=== PATIENT | female | born 1985 | race African-American/Black ===

== ENCOUNTER 2023-05-31 15:14 | Inpatient (IN) | payer MEDICAID, SELFPAY ==
[2023-05-31 15:36] VITALS: BMI 25.0
[2023-05-31] MEDS ORDERED: Methylergonovine 0.2 MG/ML VIAL IM PRN ×2 (16:25→17:12)
[2023-05-31] MEDS ORDERED: Misoprostol 200 MCG TAB PR PRN (16:25)
[2023-05-31] MEDS ORDERED: Docusate 100 MG CAP PO PRN (16:25)
[2023-05-31] MEDS ORDERED: Tranexamic Acid 1,000 MG/10 ML VIAL IVP PRN (16:25)
[2023-05-31] MEDS ORDERED: Ondansetron PF 4 MG/2 ML Vial IVP PRN (16:25)
[2023-05-31] MEDS ORDERED: Carboprost 250 MCG/ML AMP IM PRN (16:25)
[2023-05-31] MEDS ORDERED: Diphenoxylate HCl/Atropine Tablet PO PRN (16:25)
[2023-05-31] MEDS ORDERED: Lidocaine 1% (PF) 30 ML VIAL SC PRN (16:25)
[2023-05-31] MEDS ORDERED: Promethazine HCl 25 MG/ML VIAL IM PRN (16:25)
[2023-05-31] MEDS ORDERED: Oxytocin 30 units/NS 500 ML 500 ML IV SCH ×2 (16:30→17:15)
[2023-05-31] MEDS ORDERED: Penicillin G Potassium 5 MILL.UNITS in Sodium Chloride 0.9% 100 ML IVPB SCH (16:30)
[2023-05-31 16:49] LABS: Hematocrit 36.8 % (34.9-44.5); Hemoglobin 11.8 g/dL (12.0-15.5); Mean Corpuscular HGB CONC 32.1 g/dL (32.0-36.0); Mean Corpuscular Hemoglobin 28.2 pg (27.0-33.0); Mean Corpuscular Volume 87.8 fl (81.6-98.3); Mean Platelet Volume 11.1 fl (7.4-10.4); Platelet Count 308 10x3/uL (150-450); RBC Distribution Width 11.7 % (11.5-14.5); Red Blood Cell (RBC) Count 4.19 10x6/uL (3.90-5.03); White Blood Cell (WBC) Count 9.3 10x3/uL (3.5-10.5)
[2023-05-31] MEDS ORDERED: hydrALAZINE 20 MG/ML VIAL SLOW IVP PRN ×2 (17:12→18:41)
[2023-05-31] MEDS ORDERED: Milk Of Magnesia 30 ML UDCUP PO PRN (17:12)
[2023-05-31] MEDS ORDERED: Benzocaine-Menthol 82.5 ML CAN TOP PRN (17:12)
[2023-05-31] MEDS ORDERED: Lanolin Ointment 7 GM TUBE TOP PRN (17:12)
[2023-05-31] MEDS ORDERED: diphenhydrAMINE 25 MG CAP PO PRN (17:12)
[2023-05-31] MEDS ORDERED: Bisacodyl 10 MG SUPP PR PRN (17:12)
[2023-05-31 17:23] LABS: ALT (SGPT) 21 U/L (8-55); AST (SGOT) 29 U/L (5-34); Albumin 3.3 g/dL (3.5-5.0); Alkaline Phosphatase 176 U/L (40-110); Anion Gap 13 mmol/L (10-20); BUN (Urea Nitrogen) 12 mg/dL (7.0-18.7); Bilirubin, Total 1.1 mg/dL (0.2-1.2); Calc. Creatinine Clearance 96 mL/min (70-130); Calcium 8.7 mg/dL (7.8-10.44); Carbon Dioxide 19 mmol/L (22-29); Chloride 106 mmol/L (98-107); Estimated GFR 88; Globulin 3.6 g/dL (2.4-3.5); Glucose 64 mg/dL (70-105); Protein, Total 6.9 g/dL (6.0-8.3); Sodium 134 mmol/L (136-145)
[2023-05-31 17:29] LABS: Acetaminophen Less than 10 mcg/mL (10.0-30.0); Alcohol Less than 10.0 mg/dL (Less than 10); Salicylate Less than 8.0 mg/dL (15.0-30.0)
[2023-05-31] MEDS: hydrALAZINE 20 MG/ML VIAL SLOW IVP PRN (17:40)
[2023-05-31 17:43] LABS: HBSAg Index 0.19 S/CO (0-0.99); Hep B Surf Ag - L&D Non-Reactive S/CO (NonReactive)
[2023-05-31 17:44] LABS: Syphilis Antibody Nonreactive (Nonreactive); Syphilis Antibody Index 0.05 S/CO (<1.00 Non-Reactive)
[2023-05-31] MEDS ORDERED: Labetalol HCl 100 MG/20 ML VIAL SLOW IVP PRN ×2 (18:41)
[2023-05-31] MEDS ORDERED: Lorazepam 2 MG/ML VIAL SLOW IVP PRN (18:41)
[2023-05-31] MEDS ORDERED: Calcium Gluc 4.6 MEQ/10 ML (100 MG/ML) SLOW IVP PRN (18:41)
[2023-05-31] MEDS ORDERED: Magnesium Sulfate 20 gm/500 ml 20 GM/500 ML BAG IVPB SCH ×2 (18:45)
[2023-05-31 19:22] LABS: HBSAB Concentration Less than 8.00 mIU/mL; Hep B Surf AB Non-Reactive (NonReactive)
[2023-05-31] MEDS ORDERED: Penicillin G 2.5 MILL.units 2.5 MILL.UNITS in Premix 1 BAG IVPB SCH (20:30)
[2023-05-31 20:52] LABS: Amphetamine Detected (NotDetected); Barbiturates Screen Not Detected (NotDetected); Benzodiazepine Screen Not Detected (NotDetected); Cocaine Metabolite Screen Detected (NotDetected); Methadone Not Detected (NotDetected); Methamphetamine Detected (NotDetected); Opiate Screen Not Detected (NotDetected); Oxycodone Screen Not Detected (NotDetected); Phencyclidine (PCP) Detected (NotDetected); THC/Cannabinoid Screen Detected (NotDetected); Tricyclic Screen Not Detected (NotDetected)
[2023-05-31 23:24] LABS: HIV (1/2) Antibody/Antigen Non-Reactive (NonReactive); HIV 1/2 INDEX 0.08 S/CO (<1.00)
[2023-06-01] MEDS: hydrALAZINE 20 MG/ML VIAL SLOW IVP PRN
[2023-06-01] MEDS: NIFEdipine XL 30 MG ER.TAB PO SCH ×2 (08:51→20:49)
[2023-06-01] MEDS: Ibuprofen 800 MG TAB PO SCH (08:55)
[2023-06-01] MEDS ORDERED: hydrALAZINE 20 MG/ML VIAL SLOW IVP PRN (13:40)
[2023-06-01] MEDS ORDERED: Labetalol HCl 100 MG/20 ML VIAL SLOW IVP PRN ×2 (13:40)
[2023-06-01] MEDS: Labetalol HCl 100 MG/20 ML VIAL SLOW IVP PRN (14:37)
[2023-06-01] MEDS: Metoclopramide HCl 10 MG (2 mL) VIAL IVP PRN (17:55)
[2023-06-01] MEDS: diphenhydrAMINE 50 MG/ML VIAL IVP PRN (17:55)
[2023-06-02] MEDS: Labetalol HCl 200 MG TAB PO SCH (08:19)
[2023-06-02] MEDS: Prenatal Vitamin 1 TAB PO SCH (10:30)
[2023-06-02] MEDS: Docusate 100 MG CAP PO SCH (10:30)
[2023-06-02] MEDS: Ferrous Sulfate 325 MG TAB PO SCH (10:30)
[2023-06-02] MEDS: Oxytocin 30 units/NS 500 ML 500 ML ONE (10:33)
[2023-06-02] MEDS: Boostrix 0.5 ML (Tdap) VIAL (>/=7 yrs of age) IM ONE (10:33)
[2023-06-02] MEDS: Magnesium Sulfate 20 gm/500 ml 20 GM/500 ML BAG ONE (10:33)
[2023-06-02] MEDS: Acetaminophen 500 MG TAB PO PRN (10:59)
[2023-06-03 07:36] VITALS: BP 138/73; TEMP 98.8
== END 2023-06-03 13:17 | disposition home or self-care (01) | DRG 806 ==
LOC: CSHLD/OP 15:14 → CSHLD 15:30 → CSHPP 06-02 09:05
PROVIDERS: ADMIT Obstetrics & Gynecology; ATTEND Obstetrics & Gynecology
PROC: 10E0XZZ Delivery of Products of Conception, External Approach (ICD-10-PCS; principal; 2023-05-31)
DX: O60.14X0 Preterm labor third trimester with preterm delivery third trimester, not applicable or unspecified (principal); O99.324 Drug use complicating childbirth; Z37.0 Single live birth; O99.354 Diseases of the nervous system complicating childbirth; G43.909 Migraine, unspecified, not intractable, without status migrainosus; F19.10 Other psychoactive substance abuse, uncomplicated; Z88.8 Allergy status to other drugs, medicaments and biological substances; Z3A.36 36 weeks gestation of pregnancy; O62.3 Precipitate labor; O14.14 Severe pre-eclampsia complicating childbirth
CPT/HCPCS: 36415; 51702; 80053; 80306; 80307; 85027; 86706; 86762; 86780; 86850; 86900; 86901; 87340; 87389; 99285; J0360; J1200; J2765